=== PATIENT | male | born 1960 | race American Indian/Alaskan Native ===

== ENCOUNTER 2017-02-11 13:09 | Day surgery (SDC) | payer OTHER ==
[~2017-02-11] VITALS: Ht 182.9 cm; Wt 124.0 kg
[2017-02-11] MEDS ORDERED: LACTATED RINGERS 1,000 ML IV SCH (13:37)
[2017-02-11 13:38] VITALS: BP 139/93
[2017-02-11] MEDS ORDERED: PLEASE ENTER ALLERGIES MC SCH ×2 (14:00)
[2017-02-11] MEDS ORDERED: PLEASE ENTER HEIGHT AND WEIGHT MC SCH (14:00)
[2017-02-11] MEDS ORDERED: LIDOCAINE 1%, 2ML SQ PRN (14:00)
[2017-02-11] MEDS ORDERED: NIAC500C8 PO (14:06)
[2017-02-11] MEDS ORDERED: SIMV20TA3 PO (14:06)
[2017-02-11] MEDS ORDERED: ZOLP10TA5 PO (14:06)
[2017-02-11] MEDS ORDERED: OMEG-14 PO (14:06)
[2017-02-11] MEDS ORDERED: BUPIVACAINE/PF-EPI 0.5% 1:200K ONE (14:59)
[2017-02-11] MEDS ORDERED: BUPIVACAINE/PF-EPI 0.25% 1:200K ONE (14:59)
[2017-02-11] MEDS ORDERED: BUPIVACAINE/PF 0.25% ONE (14:59)
[2017-02-11] MEDS ORDERED: BUPIVACAINE/PF 0.5% ONE ×2 (15:00→15:08)
[2017-02-11] MEDS ORDERED: LIDOCAINE/PF 1%, 30ML ONE (15:08)
[2017-02-11] MEDS ORDERED: FENTANYL PF 250 MCG/5ML ONE (15:10)
[2017-02-11] MEDS ORDERED: ONDANSETRON 2MG/ML, 2ML ONE (15:10)
[2017-02-11] MEDS ORDERED: PROPOFOL 10 MG/ML, 20ML ONE (15:10)
[2017-02-11] MEDS ORDERED: DEXAMETHASONE 4 MG/ML, 5ML ONE (15:10)
[2017-02-11] MEDS ORDERED: CEFAZOLIN 1,000 MG ONE (15:10)
[2017-02-11] MEDS ORDERED: FENTANYL PF 100 MCG/2ML IV PRN (15:30)
[2017-02-11] MEDS ORDERED: OXYcodone 5 MG/5 ML ORAL.SOL UDC PO PRN (15:30)
[2017-02-11] MEDS ORDERED: ACETAMINOPHEN 325 MG TABLET PO PRN (15:30)
[2017-02-11] MEDS ORDERED: ONDANSETRON 2MG/ML, 2ML IVPush PRN (15:30)
[2017-02-11] MEDS ORDERED: hydrALAzine 20 MG/ML, 1ML IV PRN (15:30)
[2017-02-11] MEDS ORDERED: THROMBIN 5,000 UNIT VIAL TP ONE (15:41)
[2017-02-11] MEDS ORDERED: OXYcodone 5 MG/5 ML ORAL.SOL UDC ONE (16:52)
[2017-02-11] MEDS ORDERED: HYDROmorphone 2 MG/ML, 1ML ONE (16:52)
[2017-02-11] MEDS ORDERED: FENTANYL PF 100 MCG/2ML ONE (16:52)
[2017-02-11] MEDS ORDERED: ACETAMINOPHEN 650 MG/20.3 ML UDC ONE (16:52)
[2017-02-11] MEDS: HYDROmorphone 1 MG/ML, 1ML IV PRN ×3 (16:54→17:31)
[2017-02-11] MEDS: LABETALOL 5MG/ML, 20ML IV PRN ×2 (17:05→17:24)
[2017-02-11] MEDS ORDERED: SIMVASTATIN 20 MG TABLET PO SCH (21:00)
[2017-02-11] MEDS ORDERED: ZOLPIDEM 10MG TABLET PO SCH (21:00)
== END 2017-02-11 19:00 | disposition home or self-care (01) ==
LOC: OUT 13:09
PROVIDERS: ATTEND Urology
DX: N43.3 Hydrocele, unspecified (principal); N50.3 Cyst of epididymis
CPT/HCPCS: 36415; 54830; 55040; 80053; 81003; 85025; 87086; J0690; J1100; J1170; J2405; J2704; J3010; J3490